=== PATIENT | male | born 1960 | race Caucasian/White ===

== ENCOUNTER 2018-09-06 10:21 | Inpatient (IN) | payer OTHER ==
[~2018-09-06 10:21] MED LIST: PHENYLephrine (100 MCG/ML) 10ML SYG; SEVOFLURANE 15 MIN
[2018-09-06] MEDS ORDERED: PROPOFOL 20 ML (11:52)
[2018-09-06] MEDS ORDERED: morphine SULFATE/PF (10 MG/10 ML) INJ (11:52)
[2018-09-06] MEDS ORDERED: ROCURONIUM 50 MG INJ ×2 (11:52→14:03)
[2018-09-06] MEDS ORDERED: MIDAZOLAM 1 MG/ML 2 ML INJ (11:52)
[2018-09-06] MEDS ORDERED: CEFAZOLIN 1 GM INJ (11:52)
[2018-09-06] MEDS ORDERED: ROPIVACAINE 0.2% 20 ML VIAL (12:04)
[2018-09-06] MEDS ORDERED: POLYMYXIN/BACITRACIN 1L IRRIG (12:10)
[2018-09-06] MEDS ORDERED: DEXAMETHASONE 4 MG/ML 5 ML INJ (14:03)
[2018-09-06] MEDS ORDERED: KETOROLAC 30 MG INJ (14:03)
[2018-09-06] MEDS ORDERED: METOCLOPRAMIDE 10 MG INJ (14:03)
[2018-09-06] MEDS ORDERED: ONDANSETRON 4 MG INJ (14:03)
[2018-09-06] MEDS ORDERED: TRANEXAMIC ACID 1GM/100ML(PMX) 100 ML (14:03)
[2018-09-06] MEDS ORDERED: SUGAMMADEX SODIUM 200 MG/2 ML VIAL IV (14:07)
[2018-09-06] MEDS ORDERED: EPHEDrine SULFATE 50 MG/5 ML SYG IV (14:30)
[2018-09-06] MEDS ORDERED: HYDROCODONE/APAP (5/325) TAB PO (14:30)
[2018-09-06] MEDS ORDERED: ONDANSETRON 4 MG INJ IV ×2 (14:30)
[2018-09-06] MEDS ORDERED: MEPERIDINE 25 MG INJ IV (14:30)
[2018-09-06] MEDS ORDERED: FENTAnyl 50 MCG/ML VIAL IV ×3 (14:30)
[2018-09-06] MEDS ORDERED: HYDROmorphONE 0.5 MG/0.5 ML SYG IV ×2 (14:30)
[2018-09-06] MEDS ORDERED: HYDROmorphONE 1 MG/5 ML IV SYRINGE IV ×3 (14:30)
[2018-09-06] MEDS ORDERED: hydrALAzine 20 MG INJ IV (14:30)
[2018-09-06] MEDS ORDERED: OXYCODONE/ACETAMINOPHEN (5/325) TAB PO ×2 (14:30)
[2018-09-06] MEDS ORDERED: morphine 2 MG INJ IV ×2 (14:30)
[2018-09-06] MEDS ORDERED: NALBUPHINE HCL (10 MG/1 ML) INJ IV (14:30)
[2018-09-06] MEDS ORDERED: LABETALOL HCL 20MG INJ IV (14:30)
[2018-09-06] MEDS ORDERED: NALOXONE (0.4 MG/ML) INJ IV ×2 (14:30→15:00)
[2018-09-06] MEDS ORDERED: ACETAMINOPHEN 500 MG TAB PO (14:30)
[2018-09-06] MEDS ORDERED: DIPHENHYDRAMINE 50 MG INJ IV (14:30)
[2018-09-06] MEDS ORDERED: METOCLOPRAMIDE 10 MG INJ IV (14:30)
[2018-09-06] MEDS: POLYMYXIN B 500000 UNIT INJ (14:56)
[2018-09-06] MEDS: BACITRACIN 50000 UNITS INJ (14:56)
[2018-09-06] MEDS ORDERED: MAGNESIUM HYDROXIDE 30ML CUP PO (15:00)
[2018-09-06] MEDS ORDERED: NACL 0.9% 3 ML SYG IV (15:00)
[2018-09-06] MEDS ORDERED: NA PHOSPHATE/BIPHOS 133 ML ENEMA PR (15:00)
[2018-09-06] MEDS ORDERED: BISACODYL 10 MG SUPP PR (15:00)
[2018-09-06] MEDS: DOCUSATE SODIUM 100 MG CAP PO (15:46)
[2018-09-07] MEDS: PANTOPRAZOLE (EC) 40 MG TAB PO (05:39)
[2018-09-07 05:40] LABS: ADD MAN DIFF? NO
[2018-09-07 05:48] LABS: BASOPHILS % 0.2 % (0.0-2.0); HEMATOCRIT 36.3 % (42.0-52.0); HEMOGLOBIN 11.8 g/dl (14.0-18.0); LYMPHOCYTES # 0.6 10^3/ul (0.8-2.9); LYMPHOCYTES % 4.8 % (15.0-51.0); MEAN CORPUSCULAR HEMOGLOBIN 30.8 pg (29.0-33.0); MEAN CORPUSCULAR HGB CONC 32.5 g/dl (32.0-37.0); MEAN CORPUSCULAR VOLUME 94.8 fl (82.0-101.0); MEAN PLATELET VOLUME 10.6 fl (7.4-10.4); MONOCYTE # 0.9 10^3/ul (0.3-0.9); NEUTROPHIL # 11.2 10^3/ul (1.6-7.5); NEUTROPHILS % 87.1 % (39.0-77.0); PLATELET COUNT 256 10^3/UL (140-415); RED BLOOD COUNT 3.83 10^6/ul (4.70-6.10); RED CELL DISTRIBUTION WIDTH 12.6 % (11.5-14.5)
[2018-09-07 05:48] LABS: WHITE BLOOD COUNT 12.8 10^3/ul (4.8-10.8)
[2018-09-07 06:07] LABS: ANION GAP 11 (5-13); BLOOD UREA NITROGEN 14 mg/dl (7-20); CALCIUM 8.8 mg/dl (8.4-10.2); CARBON DIOXIDE 23 mmol/L (21-31); CHLORIDE 104 mmol/L (97-110); CREATININE 0.84 mg/dl (0.61-1.24); Estimated GFR > 60 mL/min (>60); GLUCOSE 189 mg/dl (70-220); POTASSIUM 4.6 mmol/L (3.5-5.1); SODIUM 138 mmol/L (135-144)
[2018-09-07 06:12] LABS: INR 0.96; PROTIME 12.9 Sec (11.9-14.9)
[2018-09-07] MEDS: DIPHENHYDRAMINE 50 MG INJ IV (07:53)
[2018-09-07] MEDS: AMLODIPINE 10 MG TAB PO (08:54)
[2018-09-07] MEDS: DOCUSATE SODIUM 100 MG CAP PO ×2 (08:54→21:39)
[2018-09-07] MEDS: LISINOPRIL 5 MG TAB PO (08:55)
[2018-09-07] MEDS: HYDROCODONE/APAP (5/325) TAB PO ×2 (15:59→21:43)
[2018-09-08] MEDS: HYDROCODONE/APAP (5/325) TAB PO ×3 (04:42→13:09)
[2018-09-08 05:19] LABS: ADD MAN DIFF? NO
[2018-09-08] MEDS: PANTOPRAZOLE (EC) 40 MG TAB PO (05:30)
[2018-09-08 05:33] LABS: BASOPHILS % 0.1 % (0.0-2.0); HEMOGLOBIN 10.3 g/dl (14.0-18.0); LYMPHOCYTES # 1.4 10^3/ul (0.8-2.9); LYMPHOCYTES % 13.3 % (15.0-51.0); MEAN CORPUSCULAR HEMOGLOBIN 31.1 pg (29.0-33.0); MEAN CORPUSCULAR HGB CONC 33.2 g/dl (32.0-37.0); MEAN CORPUSCULAR VOLUME 93.7 fl (82.0-101.0); MEAN PLATELET VOLUME 10.8 fl (7.4-10.4); MONOCYTE # 1.1 10^3/ul (0.3-0.9); MONOCYTES % 10.8 % (0.0-11.0); NEUTROPHIL # 7.8 10^3/ul (1.6-7.5); PLATELET COUNT 214 10^3/UL (140-415); RED BLOOD COUNT 3.31 10^6/ul (4.70-6.10)
[2018-09-08 05:33] LABS: WHITE BLOOD COUNT 10.4 10^3/ul (4.8-10.8)
[2018-09-08] MEDS: SENNA/DOCUSATE NA (8.6MG/50MG) TAB PO (05:36)
[2018-09-08 05:44] LABS: INR 0.98; PROTIME 13.1 Sec (11.9-14.9)
[2018-09-08 06:05] LABS: ANION GAP 6 (5-13); BLOOD UREA NITROGEN 17 mg/dl (7-20); CALCIUM 8.2 mg/dl (8.4-10.2); CARBON DIOXIDE 28 mmol/L (21-31); CHLORIDE 106 mmol/L (97-110); CREATININE 0.87 mg/dl (0.61-1.24); Estimated GFR > 60 mL/min (>60); GLUCOSE 137 mg/dl (70-220); POTASSIUM 3.9 mmol/L (3.5-5.1); SODIUM 140 mmol/L (135-144)
[2018-09-08] MEDS: LISINOPRIL 5 MG TAB PO (08:42)
[2018-09-08] MEDS: DOCUSATE SODIUM 100 MG CAP PO (08:42)
[2018-09-08] MEDS: AMLODIPINE 10 MG TAB PO (08:43)
[2018-09-08] MEDS: morphine 2 MG INJ IV ×2 (14:02→18:38)
== END 2018-09-08 19:46 | disposition home health service (06) | DRG 470 ==
LOC: REC 10:21 → MS1 16:00
PROC: 0SR906A Replacement of Right Hip Joint with Oxidized Zirconium on Polyethylene Synthetic Substitute, Uncemented, Open Approach (ICD-10-PCS; principal; 2018-09-06 12:00)
DX: M16.11 Unilateral primary osteoarthritis, right hip (principal); I10 Essential (primary) hypertension; D72.829 Elevated white blood cell count, unspecified
CPT/HCPCS: 73530; 80048; 85025; 85610; 87086; 88304; 88311; 97116; 97161; 97530